=== PATIENT | female | born 1940 | race Caucasian/White ===

== ENCOUNTER 2018-05-01 13:03 | Outpatient (RCR) | payer MEDICAID, MEDICARE ==
[~2018-05-01 13:03] MED LIST: ?BP MED; ALBU8.5H2 IH; CHOL400T43 PO; FURO20TA4 PO; GABA-488 PO; GING250C2 PO; HYDR-3063 PO; HYDR-3720 PO; INSA70301U SC; INSU100V6 SQ; INSULIN PEN; LISI10TA2 PO; MAGN400C PO; METF-380 PO; MTF500T PO; NAPR-243 PO; NF-PREG50C PO; NITR0.4T42 SL; PRAV10TA PO; TRAM-21 PO; [UNRECOGNIZED DRUG - REMARK]; [UNRECOGNIZED DRUG - REMARK]
== END 2018-05-26 | disposition home or self-care (01) ==
PROVIDERS: ATTEND Nurse Practitioner Family
DX: M54.5 Low back pain (principal); M25.551 Pain in right hip

== ENCOUNTER 2018-05-01 13:03 | Outpatient (RCR) | payer MEDICARE | END 2018-05-27 00:11 | disposition home or self-care (01) | PROVIDERS: ATTEND Nurse Practitioner Family | DX: M54.5 Low back pain (principal); M25.551 Pain in right hip ==

== ENCOUNTER → 2019-03-01 | Outpatient (CLI) | payer MEDICARE, MEDICAID ==
[~2019-03-01] VITALS: Ht 170 cm; Wt 118.0 kg
[~2019-03-01] MED LIST changes: +REGADENOSON 0.4 MG/5 ML SYR (LEXISCAN) IV ONE
[2019-03-01] MEDS: CATHETER FLUSH 10 ML SYR IV PRN ×2 (07:15→08:18)
[2019-03-01 08:16] VITALS: BP 157/80
--- NOTE | 2019-03-01 12:26 | STRESS TEST ---
DATE OF SERVICE: 03/01/2019 NUCLEAR MYOVIEW STRESS TEST REPORT REFERRING PHYSICIAN: Dr. Prince. In summary, the patient was injected with 9.94 mCi of technetium-99 Myoview and the resting images were obtained. Then, with peak stress level, a 29.3 mCi of technetium-99 Myoview were injected and the stress images were acquired, the resting and stress images were reviewed and compared in the short axis, horizontal long axis, and vertical long axis views. Review of the images showed breast attenuation with reversible ischemia involving the anterior wall and anterior septum. SSS is 9, SDS 9, TID value 0.84. On the gated images, the left ventricle appeared to be normal size with normal contractility. Calculated ejection fraction 79%. IN CONCLUSION: 1. Breast attenuation affecting the quality of the images with reversible ischemia involving the anterior wall and anterior septum. 2. Normal left ventricular size with normal contractility. Calculated ejection fraction 79%. Job ID: [id number] DocumentID: [id number] Dictated Date: 03/01/2019 11:52:14 Doorkeeper Date: 03/01/2019 12:25:16 Dictated By: MAYTE WEST MD
== END ==
LOC: CARD 06:43
PROVIDERS: ATTEND Nurse Practitioner Family
DX: I25.9 Chronic ischemic heart disease, unspecified (principal); I10 Essential (primary) hypertension
CPT/HCPCS: 78452; 93017

== ENCOUNTER → 2019-05-20 | Outpatient (CLI) | payer OTHER, MEDICAID ==
[~2019-05-20] MED LIST changes: -REGADENOSON 0.4 MG/5 ML SYR (LEXISCAN) IV ONE
--- NOTE | 2019-05-20 14:22 | Diagnostic Imaging Report ---
INDICATION: Cough and congestion. TECHNIQUE: AP and lateral view chest at 01:05 p.m. CORRELATION STUDY: None. FINDINGS: Heart size is at the upper limits of normal as is the vasculature. Coronary artery stent over left heart border. Chronic-appearing changes about the lung parenchyma. No infiltrate, effusion, or pneumothorax. Findings consistent with known old healed right proximal humerus fracture. IMPRESSION: 1. Borderline heart size and vasculature but without evidence for overt failure. Dictated by: Dictated on workstation # [id number]
--- NOTE | 2019-05-20 15:20 | Diagnostic Imaging Report ---
PROCEDURE: US Venous Lower Ext Steve. TECHNIQUE: Multiple real-time grayscale images were obtained over the lower extremities in various projections, bilaterally. Additional duplex Doppler and color Doppler images were also obtained. INDICATION: Elevated D-dimer. FINDINGS: There is no evidence of right or left lower extremity DVT. Both lower extremity deep venous system shows normal compressibility with normal response to augmentation and Valsalva. No fluid collection or mass is seen. IMPRESSION: No evidence of right or left lower extremity DVT. Dictated by: Dictated on workstation # [id number]
== END ==
LOC: RAD 12:45
PROVIDERS: ATTEND Nurse Practitioner Family
DX: R06.00 Dyspnea, unspecified (principal); M79.661 Pain in right lower leg; M79.662 Pain in left lower leg; R79.89 Other specified abnormal findings of blood chemistry
CPT/HCPCS: 71046; 93970

== ENCOUNTER → 2019-06-03 | Outpatient (CLI) | payer MEDICARE, MEDICAID ==
[~2019-06-03] MED LIST changes: +CATHETER FLUSH 10 ML SYR IV PRN; +HOLD METFORMIN - RECEIVED CONTRAST 20 ML VIAL IV SCH; +IOHEXOL 350 MG/ML 100 ML (OMNIPAQUE 350) VIAL IV ONE; +NS 100 ML (IVPB) BAG IV ONE
--- NOTE | 2019-06-03 14:51 | Diagnostic Imaging Report ---
PROCEDURE: CT angiography of the chest with contrast. TECHNIQUE: Multiple contiguous axial images were obtained through the chest after uneventful bolus administration of intravenous contrast. 3D reconstructed CTA MIP acquisitions were also performed. Auto Exposure Controls were utilized during the CT exam to meet ALARA standards for radiation dose reduction. DATE: June 03, 2019. COMPARISON: May 20, 2019. CT chest September 15, 2015. INDICATION: 78-year-old female, elevated d-dimer. Dyspnea. FINDINGS: There is no pulmonary nodule. There is no lung mass. There is no identified focal airspace consolidation. There is some motion artifact present. The central airways are patent. There is no pneumothorax. There is no pleural effusion. There is no identified pulmonary embolus. The heart is not enlarged. There is no pericardial effusion. There is no identified abnormally enlarged mediastinal, hilar, or axillary lymph node which meets CT size criteria for adenopathy. The visualized portions of the upper abdomen are unremarkable. There are multilevel degenerative changes of the spine. There is chronic expansion and bone deformity of the right posterior aspect of the L1 vertebral body and right pedicle likely relating to a chronic long-standing lesion. This is unchanged in appearance dating back to at least September 15, 2015. 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 There is no identified acute bony abnormality. IMPRESSION: CT CHEST. 1. No identified acute cardiopulmonary abnormality. 2. Long-standing lesion with chronic bone remodeling of the L1 vertebral body and right L1 pedicle. This is stable since at least September 2015. Report was faxed to office of Dr. Prince by lorenza at 2:51 p.m. Dictated by: Dictated on workstation # [id number]
== END ==
LOC: RAD 13:20
PROVIDERS: ATTEND Internal Medicine
DX: R06.00 Dyspnea, unspecified (principal); M89.9 Disorder of bone, unspecified
CPT/HCPCS: 71275

== ENCOUNTER 2019-06-17 14:02 | Outpatient (RCR) | payer MEDICARE, MEDICAID ==
[~2019-06-17 14:02] MED LIST changes: -CATHETER FLUSH 10 ML SYR IV PRN; -HOLD METFORMIN - RECEIVED CONTRAST 20 ML VIAL IV SCH; -IOHEXOL 350 MG/ML 100 ML (OMNIPAQUE 350) VIAL IV ONE; -NS 100 ML (IVPB) BAG IV ONE
== END 2019-09-15 | disposition home or self-care (01) ==
LOC: CARD 14:02
PROVIDERS: ATTEND Nurse Practitioner Family
DX: R00.2 Palpitations (principal); R06.02 Shortness of breath; R06.00 Dyspnea, unspecified; R79.1 Abnormal coagulation profile
CPT/HCPCS: 93225; 93226